=== PATIENT | male | born 1935 | race Two or more races ===

== ENCOUNTER 2024-01-02 13:43 | Emergency (ER) | payer MEDICARE, MEDICAID, SELFPAY ==
[2024-01-02 13:50] VITALS: BP 156/78; PULSE 69; RESP 18; TEMP 36.3; O2SAT 95
[2024-01-02 13:51] VITALS: PULSE 75; RESP 20; O2SAT 98
--- NOTE | 2024-01-02 14:52 | XR_ITS ---
Examination: Right femur 2 views TECHNIQUE: AP lateral right femur 2 views INDICATIONS: Patient fell today with injury to the right femur, right femur pain. FINDINGS: Acute intertrochanteric fracture right hip 9 mm separation at the fracture site Shaft of the femur intact IMPRESSION: Acute intertrochanteric fracture right hip
--- NOTE | 2024-01-02 14:52 | XR_ITS ---
Examination:Right hip AP, lateral, AP pelvis 3 views Technique: Hip AP lateral, AP pelvis, 3 views Exam date and time:January 02, 2024 1507 hours INDICATIONS: Patient fell today with into the right hip, right hip pain. FINDINGS: Acute intertrochanteric fracture right hip, up to 10 mm separation at the main fracture site No hip dislocation Left hip bones of the pelvis intact IMPRESSION: Acute intertrochanteric fracture right hip.
--- NOTE | 2024-01-02 14:53 | PD.EDFALL ---
ED Fall Injury RME/HPI General Chief Complaint: Fall Stated Complaint: FALL Time Seen by Provider: 01/02/24 14:39 Arrival date/time: 01/02/24 13:43 This is an 88-year-old male that is brought in by ambulance with complaints of fall. Patient son at bedside helping with interpretation. Patient states that he lost his balance. Patient denies dizziness. Patient denies syncope. Patient denies loss of consciousness. Patient denies head or neck pain. Patient complains of right hip and lateral upper leg pain. Patient has a history of BPH, hyperlipidemia, diabetes, and high blood pressure. Per patient's son patient had a pacemaker placement in the past. Patient usually ambulatory but has not been ambulatory since fall. Pt speaks pashto. Related Data Home Medications ?Medication ?Instructions ?Recorded ?Confirmed simvastatin 10 mg tablet (Zocor) 40 mg PO DAILY #0 tabs 07/05/13 01/02/24 apixaban 5 mg tablet (Eliquis) 5 mg PO DAILY 04/20/23 01/02/24 dapagliflozin propanediol 5 mg 5 mg PO DAILY 04/20/23 01/02/24 tablet (Farxiga) furosemide 20 mg tablet 20 mg PO QAM 04/20/23 01/02/24 insulin glargine 100 unit/mL 18 unit subcut QA 04/20/23 01/02/24 subcutaneous solution linagliptin 5 mg tablet (Tradjenta) 5 mg DAILY 04/20/23 01/02/24 losartan 50 mg tablet 50 mg PO DAILY 04/20/23 01/02/24 metformin 500 mg tablet 500 mg PO DAILY 04/20/23 01/02/24 tamsulosin 0.4 mg capsule 0.4 mg PO DAILY 04/20/23 01/02/24 clonidine HCl 0.1 mg tablet 0.1 mg PO BID 04/21/23 01/02/24 dapagliflozin propanediol 5 mg 5 mg QDAY 01/02/24 01/02/24 tablet (Farxiga) Allergies Allergy/AdvReac Type Severity Reaction Status Date / Time aspirin Allergy Unknown STOMACH Verified 01/02/24 16:54 ULCER Review of Systems Review of Systems Systems Reviewed: All systems reviewed, normal except as documented Past Medical History Social History SMOKING STATUS: Former smoker SUBSTANCE USE: does not use Travel History EBOLA RISK: No ED Exam General General appearance: Present alert and in no apparent distress Head Head exam: Present atraumatic Eye Eye exam: Present normal appearance, PERRL and EOMI ENT ENT exam: Present mucous membranes moist Neck Neck exam: Present normal inspection, full ROM and trachea midline Chest Chest inspection: Present normal inspection and symmetric chest wall rise Respiratory Respiratory exam: Present normal lung sounds bilaterally Cardiovascular Cardiovascular exam: Present other (irregular ) Abdominal Exam Abdominal exam: Present soft and other (no pain to light palpation ) Extremities Exam Extremities exam: Present other (Pain with movement to right leg, pain to palpation to right lateral hip) Back Exam Back exam: Present normal inspection and full ROM Neurological Exam Neurological exam: Present alert and oriented X3 Psychiatric Psychiatric exam: Present normal affect and normal mood Skin Skin exam: Present warm, dry, intact and normal color Course Quality Measures none Orders Category Date Time Status EKG (ED ONLY) *Do not use* NOW Care 01/02/24 15:47 Completed IV [Insert IV] STAT Care 01/02/24 16:34 Completed Referral - [employer] Att[employer] Stat Cons 01/02/24 15:46 Active Transfer to another facility [Transfer/Discharge] Stat Discharge 01/02/24 17:34 Active EKG (ED Only) Stat Exams 01/02/24 15:47 Draft XR chest 1V Stat Exams 01/02/24 15:47 Completed XR femur RT 2V Stat Exams 01/02/24 14:52 Completed XR hip RT w pelvis 2-3V Stat Exams 01/02/24 14:52 Completed CBC Stat Lab 01/02/24 16:31 Completed Comprehensive Metabolic Panel Stat Lab 01/02/24 16:31 Completed PT [Prothrombin Time with INR] Stat Lab 01/02/24 16:31 Completed Troponin I Stat Lab 01/02/24 16:31 Completed fentaNYL INJ [Sublimaze Inj] Med 01/02/24 16:34 Discontinued 12.5 mcg IV X1 ONE fentaNYL INJ [Sublimaze Inj] Med 01/02/24 17:32 Discontinued 25 mcg IV X1 ONE fentaNYL INJ [Sublimaze Inj] Med 01/02/24 18:51 Discontinued 25 mcg IV X1 ONE Vital Signs Vital signs: Vital Signs Temperature 97.4 F 01/02/24 13:50 Pulse Rate 69 01/02/24 13:50 Respiratory Rate 18 01/02/24 13:50 Blood Pressure 156/78 H 01/02/24 13:50 Pulse Oximetry (%) 95 01/02/24 13:50 Oxygen Delivery Method Room Air 01/02/24 13:50 Procedures -ED EKG Interpretation #1: Date of EK01/02/24 Time of EK:59 Rate: 76 Interpretation: Interpreted by me (atrial fibrillation ) EKG Impression: Atrial fibrillation Fall MDM Narrative MDM Narrative:: This is an 88-year-old male that is brought in by ambulance with complaints of fall. Patient son at bedside helping with interpretation. Patient states that he lost his balance. Patient denies dizziness. Patient denies syncope. Patient denies loss of consciousness. Patient denies head or neck pain. Patient complains of right hip and lateral upper leg pain. Patient has a history of BPH, hyperlipidemia, diabetes, and high blood pressure. Per patient's son patient had a pacemaker placement in the past. Patient usually ambulatory but has not been ambulatory since fall. Pt speaks pashto. Patient given fentanyl for pain. femur left FINDINGS: Acute intertrochanteric fracture right hip 9 mm separation at the fracture site Shaft of the femur intact IMPRESSION: Acute intertrochanteric fracture right hip left hip: FINDINGS: Acute intertrochanteric fracture right hip, up to 10 mm separation at the main fracture site No hip dislocation Left hip bones of the pelvis intact IMPRESSION: Acute intertrochanteric fracture right hip. Chest xray: FINDINGS: Moderate enlargement cardiac contour Cardiac leads satisfactory position Prominent vascular congestion with mild septal edema at the lung bases IMPRESSION: Mild CHF Patient data External records reviewed:: [facility] previous records Clinical information provided by:: patient and family Social determinants that could affect healthcare access:: none Patient has the following chronic illnesses:: see note How is presenting disease/condition affected by chronic disease/condition?: no chronic disease Evaluation data The following diagnostics were reviewed and interpreted by me:: lab results, radiology exam(s) and EKG tracing(s) Lab and/or radiology exams considered but not ordered:: none Interpretation Summary: see note Medications / Prescriptions Medications or Prescriptions considered but not ordered:: none Medication administrations:: Medication Administration History Discontinued Medications Fentanyl Citrate (Fentanyl Cit Inj 50 Mcg/Ml Amp 2ml) 12.5 mcg IV X1 ONE Stop: 01/02/24 16:35 Last Admin: 01/02/24 16:55 Dose: 12.5 mcg Documented By: ARF Fentanyl Citrate (Fentanyl Cit Inj 50 Mcg/Ml Amp 2ml) 25 mcg IV X1 ONE Stop: 01/02/24 17:33 Last Admin: 01/02/24 17:55 Dose: 25 mcg Documented By: ARF Fentanyl Citrate (Fentanyl Cit Inj 50 Mcg/Ml Amp 2ml) 25 mcg IV X1 ONE Stop: 01/02/24 18:52 Last Admin: 01/02/24 19:02 Dose: 25 mcg Documented By: YOBANI Comments: see mar Consultations Consultation(s) initiated? (list below): No Diagnosis Fall Differential Diagnosis: syncope and other (fracture/contusion, syncope ) Most likely diagnosis given after review of the tests above:: fracture Admission Indicated Admission indicated?: not indicated Admission Request Was there a request for admission?: No Disposition Plan Disposition Plan: Transfer Discharge Plan Plan Patient Disposition: [facility] Facility Pt Being Transferred to: [facility] Service Needed for Transfer: Orthopedics Patient condition on transfer: Stable Prescriptions/Referrals Prescriptions/Med Rec: No Action simvastatin [Zocor] 10 MG tablet 40 mg PO DAILY Qty: 0 Tradjenta 5 mg tablet 5 mg DAILY metformin 500 mg tablet 500 mg PO DAILY Eliquis 5 mg tablet 5 mg PO DAILY tamsulosin 0.4 mg capsule 0.4 mg PO DAILY dapagliflozin propanediol [Farxiga] 5 mg Tablet 5 mg PO DAILY losartan 50 mg Tablet 50 mg PO DAILY insulin glargine 100 unit/mL Solution 18 unit SUBCUT QAM furosemide 20 mg Tablet 20 mg PO QAM clonidine HCl 0.1 mg Tablet 0.1 mg PO BID dapagliflozin propanediol [Farxiga] 5 mg tablet 5 mg QDAY Patient Comments: TAKE 1 TABLET BY MOUTH EVERY DAY Referrals: Arnaldo Nevarez MD [Primary Care Provider] - In 1 week Problem List Clinical Impression: Closed intertrochanteric fracture Patient/Caregiver Discharge Instructions Print Language: Divehi Stand Alone Forms: Lynne Award Info., Patient Portal Info Letter
--- NOTE | 2024-01-02 15:47 | EKG_ITS ---
[facility] Test Date: 2024-01-02 Pat Name: UBALDO POWELL Department: Room: - Gender: Male Manager Social Media: : 1935 Requested By: Genet Contreras Order Number: [id number] Reading MD: Genet Contreras Measurements Intervals Beccaria Rate: 76 P: IA: QRS: 37 QRSD: 88 T: 269 QT: 387 QTc: 437 Interpretive Statements ATRIAL FIBRILLATION POSSIBLE ANTERIOR MYOCARDIAL INFARCTION , OF INDETERMINATE AGE [30 ms Q WAVE IN V3/V4, OR R < 0.2 mV IN V4] MODERATE T-WAVE ABNORMALITY, CONSIDER LATERAL ISCHEMIA [-0.1+ mV T WAVE IN I/aVL/V5/V6] MODERATE T-WAVE ABNORMALITY, CONSIDER INFERIOR ISCHEMIA [-0.1+ mV T WAVE IN II/aVF] Compared to ECG 04/20/2023 16:04:19 Myocardial infarct finding now present T-wave abnormality now present Possible ischemia now present Ventricular-paced complex(es) or rhythm no longer present /store/S0/[id number].pdf
--- NOTE | 2024-01-02 15:47 | XR_ITS ---
Examination: AP chest single view Technique one AP portable upright chest single view Exam date and time: January 02, 2024 1604 hours INDICATIONS: Preop FINDINGS: Moderate enlargement cardiac contour Cardiac leads satisfactory position Prominent vascular congestion with mild septal edema at the lung bases IMPRESSION: Mild CHF
--- NOTE | 2024-01-02 16:44 | PC.CM ---
Addendum entered by Kenyatta Rodriguez RN 01/02/24 17:23: correction # for report [phone]. [facility]. Packet given to ED charge nurse with CD in packet. director of group counseling program time set for 1900. Charge nurse made aware. Addendum entered by Kenyatta Rodriguez RN 01/02/24 17:07: I received a call from Courtney with the transfer center at [facility]. Patient has been accepted to ED with Dr. Hubert Bae. The number to call and give report is [phone]. I will get packet together and make a CD. Original Note: 1600 I received a referral to transfer patient for ortho surgery Patient had a fall and has Acute intertrochanteric fracture right hip. We do not have ortho services service station equipment mechanic today but he have coverage tomorrow. I initiated a transfer to [facility] and to [facility].
[2024-01-02 16:47] LABS: Basophils # (Auto) 0.1 Thou/mm3 (0.0-0.2); Basophils % (Auto) 1 % (0-2.5); Eosinophils % (Auto) 0 % (0-10); Hematocrit 39.3 % (41.0-53.0); Hemoglobin 12.5 g/dL (13.5-16.0); Immature Granulocytes % (Auto) 0 % (0-0); Immature Granulocytes Auto 0.04 Thou/mm3 (0.00-0.00); Lymphocytes # (Auto) 0.6 Thou/mm3 (1.0-4.8); Lymphocytes % (Auto) 6 % (10-50); Mean Corpuscular HGB Conc 31.8 g/dl (31.0-37.0); Mean Corpuscular Hemoglobin 26.5 pg (25.0-35.0); Mean Corpuscular Volume 83 fL (80-100); Monocytes # (Auto) 0.5 Thou/mm3 (0.0-0.8); Monocytes % (Auto) 5 % (0-12); Neutrophils # (Auto) 8.2 Thou/mm3 (1.8-7.7); Neutrophils % (Auto) 87 % (37-80); Nucleated Red Blood Cell % 0 /100 WBC (0); Platelet Count 175 Thou/mm3 (140-440); RDW Standard Deviation 48.7 fL (35.1-43.9); Red Blood Count 4.71 Miln/mm3 (4.50-5.90); White Blood Count 9.4 Thou/mm3 (3.8-10.6)
[2024-01-02] MEDS: fentaNYL CIT INJ 50 mCg/ML AMP 2ML 12.5 MCG IV (16:55)
[2024-01-02 16:57] LABS: INR 1.1 (0.9-1.3); Prothrombin Time 11.9 Seconds (9.0-12.2)
[2024-01-02 17:07] LABS: Alanine Aminotransferase 11 U/L (10-49); Albumin, Serum 4.2 gm/dL (3.4-4.8); Albumin/Globulin Ratio 1.4 (1.2-2.2); Alkaline Phosphatase 96 U/L (46-116); Anion Gap 8 (7-16); Aspartate Amino Transferase 15 U/L (0-34); BUN/Creatinine Ratio 33 Ratio (12-20); Bilirubin,Total 1.9 mg/dL (0.3-1.2); Blood Urea Nitrogen 20 mg/dL (9-23); Calcium 9.7 mg/dL (8.3-10.6); Calcium (Corrected) 9.7 mg/dL (8.5-10.1); Carbon Dioxide 24.3 mMol/L (20.0-31.0); Chloride 100 mMol/L (98-107); Creatinine (Component) 0.6 mg/dL (0.6-1.3); Glucose 174 mg/dL (74-106); Osmolality,Calculated 271 (275-295); Potassium 4.1 mMol/L (3.4-5.1); Sodium 132 mMol/L (136-145); Total Protein 7.2 gm/dL (5.7-8.2); Troponin I < 0.020 ng/mL (0.0-0.045); eGFR > 60 See Note
[2024-01-02] MEDS: fentaNYL CIT INJ 50 mCg/ML AMP 2ML 25 MCG IV ×2 (17:55→19:02)
[2024-01-02 18:02] VITALS: BP 151/71; PULSE 70; RESP 18; TEMP 36.3; O2SAT 95
--- NOTE | 2024-01-02 19:09 | PC.NURSE ---
GAVE REPORT TO ASTER MACK AT [facility]
== END 2024-01-02 19:13 | disposition short-term general hospital (02) ==
PROVIDERS: Nurse Practitioner Family; Emergency Provider Emergency Medicine; PCP Family Medicine
DX: S72.141A Displaced intertrochanteric fracture of right femur, initial encounter for closed fracture (principal); I48.91 Unspecified atrial fibrillation; I50.9 Heart failure, unspecified; W19.XXXA Unspecified fall, initial encounter; Z95.0 Presence of cardiac pacemaker
CPT/HCPCS: 36415; 71045; 73502; 73552; 80053; 84484; 85025; 85610; 93005; 99285; J3010